=== PATIENT | female | born 1995 | race Caucasian/White ===

== ENCOUNTER 2023-04-16 16:47 | Emergency (ER) | payer OTHER ==
[~2023-04-16] VITALS: Ht 165.1 cm; Wt 99.8 kg
[~2023-04-16 16:47] MED LIST: ZOLOFT50 MG PO
[2023-04-16 16:54] VITALS: O2SAT 100
[2023-04-16] MEDS ORDERED: HYDROCODONE/APAP 7.5MG-325MG 1 EA TAB PO STA (17:09)
== END 2023-04-16 18:44 | disposition home or self-care (01) ==
LOC: ER 16:56
DX: M79.672 Pain in left foot (principal); X50.1XXA Overexertion from prolonged static or awkward postures, initial encounter; Y93.01 Activity, walking, marching and hiking; Y92.89 Other specified places as the place of occurrence of the external cause; F41.9 Anxiety disorder, unspecified
CPT/HCPCS: 99283

== ENCOUNTER 2024-04-17 13:41 | Emergency (ER) | payer SELFPAY ==
[~2024-04-17] VITALS: Ht 165.1 cm; Wt 99.8 kg
[2024-04-17 15:13] VITALS: PULSE 68; RESP 17; TEMP 98.6; O2SAT 100
[2024-04-17 16:04] LABS: CLARITY,URINE HAZY (CLEAR); COLOR,URINE YELLOW (YELLOW); LEUKOCYTE ESTERASE ,URINE SMALL (NEGATIVE); NITRITE,URINE NEGATIVE (NEGATIVE); PH,URINE 7.5 (5 - 7); PROTEIN,URINE DIPSTICK TRACE (NEGATIVE)
[2024-04-17 16:05] LABS: BILIRUBIN,URINE NEGATIVE (NEGATIVE); GLUCOSE, URINE NEGATIVE (NEGATIVE); KETONES,URINE NEGATIVE (NEGATIVE); URINE UROBILINOGEN 0.2 mg/dL (0.2 - 1)
[2024-04-17 16:23] LABS: BACTERIA,URINE MODERATE /HPF; EPITHELIAL CELLS,URINE MODERATE /LPF; RBC,URINE 0-5 /HPF (0-5)
[2024-04-17] MEDS ORDERED: CEFDINIR300 MG PO (17:58)
== END 2024-04-17 18:09 | disposition home or self-care (01) ==
LOC: ER 14:15
DX: R30.0 Dysuria (principal); N39.0 Urinary tract infection, site not specified; R10.2 Pelvic and perineal pain; F41.9 Anxiety disorder, unspecified
CPT/HCPCS: 81001; 87086; 99282